=== PATIENT | male | born 1980 | race Caucasian/White ===

== ENCOUNTER 2023-09-24 19:14 | Emergency (ER) | payer BC ==
--- NOTE | 2023-09-24 21:50 | XR ---
EXAMINATION TYPE: XR hand complete LT DATE OF EXAM: 09/24/2023 9:11 PM CLINICAL INDICATION:Male, 42 years old with history of left thumb injury; COMPARISON: None TECHNIQUE: XR hand complete LT Frontal, lateral and oblique views were obtained. FINDINGS: Normal alignment of the visualized joints. No acute osseous pathology is identified. No e vidence of soft tissue swelling. No significant degeneration IMPRESSION: No acute osseous pathology.
--- NOTE | 2023-09-24 22:17 | ED ---
Upper Extremity HPI - General Chief Complaint: Extremity Injury, Upper Stated Complaint: Lft Thumb Injury Time Seen by Provider: 09/24/23 21:00 Source: patient, RN notes reviewed Mode of arrival: ambulatory Limitations: no limitations - History of Present Illness Initial Comments: 42-year-old male presenting for left thumb injury prior to arrival. States he was pulling the ignition on lawn machinery when the machine hit him in the left thumb. He has been having pain and swelling since and reports he can barely move his left thumb. Denies numbness or tingling in the left thumb. Denies other injuries. - Related Data Allergies Allergy/AdvReac Type Severity Reaction Status Date / Time No Known Allergies Allergy Verified 09/24/23 19:48 Review of Systems ROS Statement: Those systems with pertinent positive or pertinent negative responses have been documented in the HPI. ROS Other: All systems not noted in ROS Statement are negative. Past Medical History Past Medical History: No Reported History Past Surgical History: No Surgical Hx Reported Past Psychological History: No Psychological Hx Reported Smoking Status: Current every day smoker Past Alcohol Use History: Occasional Past Drug Use History: None Reported General Exam Limitations: no limitations General appearance: alert, in no apparent distress Left Forearm Wrist exam: Present: normal inspection, full ROM. Absent: tenderness, swelling Hand Wrist exam: Present: full ROM (Limited range of motion of thumb), tenderness (Diffuse tenderness over ventral dorsal aspect of left first digit), swelling (Moderate edema over metacarpophalangeal joint of first digit. No erythema. Cap refill less than 2 seconds, radial pulses intact, sensation intact) Vascular: Present: normal capillary refill. Absent: vascular compromise Course Vital Signs 09/24/23 09/24/23 19:45 22:40 Temperature 98.3 F 98.2 F Pulse Rate 86 81 Respiratory 20 18 Rate Blood Pressure 131/77 128/76 O2 Sat by Pulse 97 99 Oximetry Procedures - Orthopedic Splinting/Casting Injury #1 Side: left Upper Extremity Injury Location: hand Upper Extremity Immobilizer: thumb spica Additional Comments: Vascular intact status post procedure Medical Decision Making - Medical Decision Making Was pt. sent in by a medical professional or institution (, PA, OIL AND GAS WELL TREATMENT OPERATOR, urgent care, hospital, or halfway...) When possible be specific @ -No Did you speak to anyone other than the patient for history (EMS, parent, family, police, friend...)? What history was obtained from this source @ -No Did you review nursing and triage notes (agree or disagree)? Why? @ -I reviewed and agree with nursing and triage notes Were old charts reviewed (outside hosp., previous admission, EMS record, old EKG, old radiological studies, urgent care reports/EKG's, halfway records)? Report findings @ -No old charts were reviewed Differential Diagnosis (chest pain, altered mental status, abdominal pain women, abdominal pain men, vaginal bleeding, weakness, fever, dyspnea, syncope, headache, dizziness, GI bleed, back pain, seizure, CVA, palpatations, mental health, musculoskeletal)? @ -Differential Musculoskeletal Muscular strain, contusion, ligament sprain, fracture, arthritis, septic arthritis, bursitis, cellulitis, muscle spasm, nerve compression, DVT, arterial occlusion, herpes zoster, electrolyte abnormality, tumor.... This is not meant to be in all inclusive list EKG interpreted by me (3pts min.). @ -None X-rays interpreted by me (1pt min.). @ -X-ray of left thumb reveals no acute osseous abnormality CT interpreted by me (1pt min.). @ -None done U/S interpreted by me (1pt. min.). @ -None done What testing was considered but not performed or refused? (CT, X-rays, U/S, labs)? Why? @ -None What meds were considered but not given or refused? Why? @ -None Did you discuss the management of the patient with other professionals (professionals i.e. , PA, OIL AND GAS WELL TREATMENT OPERATOR, lab, RT, psych nurse, social scientist, steel erector apprentice, teacher, chief green officer, block and case maker)? Give summary @ -No Was smoking cessation discussed for >3mins.? @ -No Was critical care preformed (if so, how long)? @ -No Were there social determinants of health that impacted care today? How? (Homelessness, low income, unemployed, alcoholism, drug addiction, trans portation, low edu. Level, literacy, decrease access to med. care, longterm, rehab)? @ -No Was there de-escalation of care discussed even if they declined (Discuss DNR or withdrawal of care, Hospice)? DNR status @ -No What co-morbidities impacted this encounter? (DM, HTN, Smoking, COPD, CAD, Cancer, CVA, ARF, Chemo, Hep., AIDS, mental health diagnosis, sleep apnea, morbid obesity)? @ -None Was patient admitted / discharged? Hospital course, mention meds given and route, prescriptions, significant lab abnormalities, going to OR and other pertinent info. @ -Patient was discharged. Patient was seen and evaluated for left thumb injury prior to arrival. Patient is neurovascularly intact. No sign of bacterial infection. X-ray reveals no acute process. Discussed with patient that I suspect ligament sprain of thumb. Thumb spica splint applied and patient was neurovascularly intact status post splint. Advised orthopedic follow-up. Strict return parameters discussed and patient is agreeable to plan. Case was discussed with my attending Dr. Vasquez. Patient discharged in stable condition. Undiagnosed new problem with uncertain prognosis? @ -No Drug Therapy requiring intensive monitoring for toxicity (Heparin, Nitro, Insulin, Cardizem)? @ -No Were any procedures done? @ -Thumb spica splint Diagnosis/symptom? @ -Left thumb sprain Acute, or Chronic, or Acute on Chronic? @ -Acute Uncomplicated (without systemic symptoms) or Complicated (systemic symptoms)? @ -Uncomplicated Side effects of treatment? @ -No Exacerbation, Progression, or Severe Exacerbation? @ -No Poses a threat to life or bodily function? How? (Chest pain, [place], [place], pneumonia, PE, COPD, DKA, ARF, appy, cholecystitis, CVA, Diverticulitis, Homicidal, Suicidal, threat to staff... and all critical care pts) @ -Low likelihood Disposition Clinical Impression: Left thumb sprain Disposition: HOME SELF-CARE Condition: Stable Instructions (If sedation given, give patient instructions): Hand Sprain (ED) Additional Instructions: Please follow-up with academic specialist tomorrow. Keep splint dry and elevated. You may take ibuprofen or Tylenol as needed for pain. Please return to the Emergency Department if symptoms worsen or any other concerns. Is patient prescribed a controlled substance at d/c from ED?: No Referrals: None,Stated [Primary Care Provider] - 1-2 days Ernesto Sheppard MD [Medical Doctor] - 1-2 days Time of Disposition: 22:17
[2023-09-24 22:41] VITALS: BP 128/76; PULSE 81; RESP 18; TEMP 98.2
== END 2023-09-24 22:41 | disposition home or self-care (01) ==
LOC: EC 19:14
DX: S63.602A Unspecified sprain of left thumb, initial encounter (principal); F17.200 Nicotine dependence, unspecified, uncomplicated; X50.0XXA Overexertion from strenuous movement or load, initial encounter
CPT/HCPCS: 29125; 99283